=== PATIENT | male | born 1925 | race African-American/Black ===

== ENCOUNTER 2017-01-03 10:23 | Emergency (ER) | payer MEDICARE, OTHER ==
[~2017-01-03] VITALS: Ht 174 cm; Wt 80.7 kg
[~2017-01-03 10:23] MED LIST: ATOR40TA59 PO; CALC667C6 PO; FOLI0.8T3 PO; LEVO25TA55 PO; MIDO5TAB PO; WARF-78 PO; WARF7.5T48 PO
[2017-01-03] MEDS ORDERED: PHYTONADIONE (VIT K1) 5 MG TABLET PO ONE (11:00)
--- NOTE | 2017-01-03 11:20 | PHYS DOC ---
Past Medical History Past Medical History: CHF, High Cholesterol, Hypertension, Hypothyroid, Renal Failure Past Surgical History: Cholecystectomy, Knee Replacement, Pacemaker, Tonsillectomy, Other Additional Past Surgical Histo: R knee, R orchiectomy Alcohol Use: None Drug Use: None Adult General Chief Complaint Chief Complaint: ABNORMAL LABS HPI HPI Patient is a 89 year old male who presents with supratherapeutic INR. The patient takes coumadin for afib, had routine INR check showing INR of 6.6. He has no complaints, denies gum bleeding, hemoptysis, hematemesis, hematochezia/ melena, denies change in mental status, neurologic symptoms. 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 Review of Systems Review of Systems Constitutional: Denies fever or chills Eyes: Denies change in visual acuity HENT: Denies nasal congestion or sore throat Respiratory: Denies cough or shortness of breath Cardiovascular: Denies chest pain GI: Denies abdominal pain, nausea, vomiting, bloody stools or diarrhea : Denies hematuria Musculoskeletal: Denies back pain or joint pain Integument: Denies rash or skin lesions Neurologic: Denies headache, focal weakness or sensory changes Current Medications Current Medications Current Medications Medications (Trade) Dose Ordered Sig/Lida Start Time Stop Time Status Last Admin Dose Admin Phytonadione (Mephyton Tablet) 5 mg 1X ONCE 01/03/17 11:00 01/03/17 11:01 DC 01/03/17 11:19 5 MG Allergies Allergies Allergies Coded Allergies Type Severity Reaction Last Updated Verified No Known Drug Allergies 01/03/17 No Physical Exam Physical Exam Constitutional: Well developed, well nourished, no acute distress, non-toxic appearance. HENT: Normocephalic, atraumatic, bilateral external ears normal, oropharynx moist, nose normal. Eyes: PERRLA, EOMI, conjunctiva normal, no discharge. Neck: supple, no stridor. Cardiovascular: RRR, no murmurs, no edema. Lungs & Thorax: LCTAB, no wheezing, no respiratory distress. Abdomen: soft, nontender, nondistended. Skin: Warm, dry, no erythema, no rash. Back: No tenderness. Extremities: No tenderness, no edema. Neurologic: Alert and oriented X 3, normal motor & sensory function, no facial droop, no focal deficits noted. Psychologic: Affect normal, judgement normal, mood normal. Current Patient Data Vital Signs Vital Signs Date Time Temp Pulse Resp B/P (MAP) Pulse Ox O2 Delivery O2 Flow Rate FiO2 01/03/17 11:30 73 20 109/54 (72) 96 Room Air 01/03/17 10:30 97.5 97.5 EKG EKG [] Radiology/Procedures Radiology/Procedures [] Course & Med Decision Making Course & Med Decision Making Pertinent Labs and Imaging studies reviewed. (See chart for details) The patient presents for treatment for supratherapeutic INR. Dr. Oconnor notified me about this patient. She requested that he be given 5 mg of vitamin K & discharged home to follow up with her tomorrow. She did not recommend recheck of INR or other workup to be completed in the ED. Patient instructed to hold today's dose of warfarin. Vitamin K was administered orally & he was discharged in stable condition with instructions to return for bleeding complications or new neurologic conditions/changes in mental status, any otherwise worsening condition. [] Dragon Disclaimer Dragon Disclaimer This electronic medical record was generated, in whole or in part, using a voice recognition dictation system. Departure Departure Impression: Primary Impression: Supratherapeutic INR Disposition: 01 HOME, SELF-CARE Condition: STABLE Referrals: ISAAC OCONNOR MD (PCP) Patient Instructions: Warfarin, [id number] Additional Instructions: You were seen in the emergency department today for high INR. You received medication to reverse your prescription medication. Please skipped today's dose of Coumadin as recommended by Dr. Oconnor. Follow-up in the clinic tomorrow. You will need to have labs rechecked. Return to the emergency department for confusion, headache, abnormal walking or talking, numbness or weakness on one side of the body, linear dark stools, any otherwise worsening condition. TRAVIS MINAYA MD Jan 03, 2017 11:20
[2017-01-03 11:30] VITALS: BP 109/54
== END 2017-01-03 11:35 | disposition home or self-care (01) ==
LOC: ER 10:23
DX: R79.1 Abnormal coagulation profile (principal); I13.2 Hypertensive heart and chronic kidney disease with heart failure and with stage 5 chronic kidney disease, or end stage renal disease; N18.6 End stage renal disease; I50.9 Heart failure, unspecified; E03.9 Hypothyroidism, unspecified; E78.00 Pure hypercholesterolemia, unspecified; I48.91 Unspecified atrial fibrillation; Z79.01 Long term (current) use of anticoagulants
CPT/HCPCS: 99282